=== PATIENT | male | born 1955 | race African-American/Black ===

== ENCOUNTER 2016-04-11 09:18 | Observation (INO) | payer OTHER ==
[2016-04-11 09:26] VITALS: BMI 23.3
--- NOTE | 2016-04-11 09:46 | PDOC ---
History of Present Illness - General Chief Complaint: Chest Pain Stated Complaint: LT ARM NUMBNESS Time Seen by Provider: 04/11/16 09:37 History Source: Patient Exam Limitations: No Limitations - History of Present Illness Initial Comments: 04/11/16 09:46 CHIEF COMPLAINT: Left arm pain HISTORY OF PRESENT ILLNESS: This is a 60-year-old male with a history of NIDDM, HLD, HTN, and chronic back pain who presents to the ED with his family complaining of 3 days of left arm pain. The pain was initially intermittent and associated with chest pain and diaphoresis. It is now constant and associated with weakness and numbness. He reports he is not able to pick things up with his left arm because of weakness. He denies shortness of breath, headache, nausea, fevers/chills, or any other symptoms. Vitel signs on arrival are notable for pulse of 98. PCP is Dr. Jordan Barton. Patient is a nonsmoker. REVIEW OF SYSTEMS: GENERAL/CONSTITUTIONAL: No fever or chills. No weakness. No weight change. HEAD, EYES, EARS, NOSE AND THROAT: No change in vision. No ear pain or discharge. No sore throat. CARDIOVASCULAR: Intermittent chest pain, diaphoresis. No palpitations. RESPIRATORY: No cough, wheezing, or shortness of breath. GASTROINTESTINAL: No nausea, vomiting, diarrhea or constipation. GENITOURINARY: No dysuria, frequency, or change in urination. MUSCULOSKELETAL: No joint or muscle swelling or pain. No neck or back pain. SKIN: No rash or easy bruising. NEUROLOGIC: No headache, vertigo, or loss of consciousness. Left arm numbness/ weakness. PSYCHIATRIC: No depression or anxiety. ENDOCRINE: No increased thirst. No abnormal weight change. HEMATOLOGIC/LYMPHATIC: No anemia, easy bleeding, or history of blood clots. ALLERGIC/IMMUNOLOGIC: No hives or skin allergy. No latex allergy. PHYSICAL EXAM: GENERAL: The patient is awake, alert, and fully oriented, in no acute distress. HEAD: Normal with no signs of trauma. ENT: Pupils equal, round and reactive to light, extraocular movements intact, sclera anicteric, conjunctiva clear. Neck supple. LUNGS: Clear to auscultation bilaterally. Normal excursion. No respiratory distress or use of accessory muscles. CV: RRR, S1/S2, no MRG. Cap refill < 2 sec. ABDOMEN: Soft, non-distended, non-tender. EXTREMITIES: Normal range of motion, no edema. NEUROLOGICAL: Normal speech, normal gait. CN II-XII grossly intact. See NIHSS. PSYCH: Normal mood, normal affect. SKIN: Warm, dry, normal turgor, no rashes or lesions noted. NIH Stroke Scale - Last Known Well Date/Time & Onset Date Last Known Well: 04/08/16 - Initial Evaluation Level of consciousness: Alert Ask patient the month and their age: Answers both correctly Ask patient to open & close eyes; make fist and let go: Obeys both correctly Best gaze (horizontal eye movement): Normal Visual field testing: No visual field loss Facial paresis (Show teeth/raise eyebrows/close eyes tight): Normal symmetrical movement Motor Function: Left Arm: Drift Motor Function: Right Arm: Normal (extends arm 90 (or 45) degrees for 10 seconds without drift Motor Function: Left Leg: Normal (extends leg 30 degrees for 5 seconds without drift) Motor Function: Right Leg: Normal (extends leg 30 degrees for 5 seconds without drift) Limb Ataxia: No ataxia Sensory(Use pinprick test arms,legs,trunk,face/side to side): Mild to moderate decrease in sensation Best language (Describe picture, name items, read sentences): No Aphasia Dysarthria (read several words): Normal articulation Extinction and Inattention: No abnormality - Total Score NIH Stroke Scale Score: 2 Past History - Past Medical History Allergies/Adverse Reactions: Allergies Allergy/AdvReac Type Severity Reaction Status Date / Time No Known Allergies Allergy Verified 04/11/16 09:25 Home Medications: Ambulatory Orders Cyclobenzaprine HCl 5 mg PO TID 04/11/16 Glimepiride [Amaryl -] 4 mg PO DAILY@0700 04/11/16 Metformin HCl [Metformin HCl ER] 500 mg PO DAILY 04/11/16 Naproxen 250 mg PO DAILY 04/11/16 Pravastatin Sodium [Pravachol (Nf)] 40 mg PO HS 04/11/16 Diabetes: Yes HTN: Yes - Psycho/Social/Smoking Cessation Hx Suicidal Ideation: No Smoking History: Never smoked Information on smoking cessation initiated: No *Physical Exam - Vital Signs Last Vital Signs Temp Pulse Resp BP Pulse Ox 98.3 F 98 H 18 154/75 98 04/11/16 09:22 04/11/16 09:22 04/11/16 09:22 04/11/16 09:22 04/11/16 09:22 Heart Score/ECG Review - History History: Moderately suspicious - Electrocardiogram EKG: Normal - Age Age: 45-65 - Risk Factors Risk Factors Heart Score: Yes Hx Hypercholesterolemia, Yes Hx Hypertension, Yes Hx Diabetes Based on the list above the patient has:: >/=3 risk factors or Hx atherosclerotic disease - Troponin Troponin: </= normal limit - Score Heart Score - Total: 4 - ECG Intrepretation Comment:: 04/11/16 10:38 NSR at 86bpm with left axis deviation ED Treatment Course - LABORATORY CBC & Chemistry Diagram: 04/11/16 10:00 04/11/16 10:00 - RADIOLOGY Radiology Studies Ordered: Category Date Time Status HEAD CT WITHOUT CONTRAST [CT] Stat CT Scan 04/11/16 09:46 Ordered CHEST X-RAY PORTABLE* [RAD] Stat Radiology 04/11/16 09:37 Ordered Medical Decision Making - Medical Decision Making 04/11/16 10:21 A/P: 60 year old male with left arm pain, numbness, and weakness. Associated chest pain and diaphoresis are suspicious for ACS. NIHSS=2 and onset is 3 days ago, so patient is not a candidate for TPA. Cervical radiculopathy also considered. 1. EKG 2. Cardiac labs 3. Head CT 4. ASA if HCT negative for hemorrhage 5. Anticipate admission/observation 04/11/16 11:[address]: no acute intracranial process CXR: No acute pathology Troponin <0.02 Patient continues to have left arm pain alternating with numbness. Will request observation for r/o ACS and r/o CVA. *DC/Admit/Observation/Transfer Diagnosis at time of Disposition: Left arm pain, Left arm numbness - Discharge Dispostion Admit: Yes
[2016-04-11 10:15] LABS: BASOPHIL 0.6 % (0-2.0); EOSINOPHIL 1.2 % (0-4.5); MCH 27.7 pg (25.7-33.7); MCHC 32.5 g/dl (32.0-35.9); MEAN CELL VOLUME 85.4 fl (80-96); MEAN PLT VOLUME 9.1 fl (7.5-11.1); NEUTROPHILS 55.1 % (42.8-82.8); PLATELET COUNT 197 K/MM3 (134-434); RDW 13.2 % (11.9-15.9)
[2016-04-11 10:29] LABS: INR 1.12 (0.82-1.09); PROTHROMBIN TIME (PATIENT) 12.4 SEC (9.98-11.88)
[2016-04-11 11:11] LABS: ALBUMIN 3.7 g/dl (3.4-5.0); ANION GAP 9 (8-16); CALCIUM 8.4 mg/dL (8.5-10.1); CO2 24 mmol/L (21-32); SGOT/AST 17 U/L (15-37); SGPT/ALT 18 U/L (12-78)
[2016-04-11 11:14] LABS: ALK PHOS 62 U/L (45-117); BILIRUBIN,TOTAL 0.6 mg/dL (0.2-1.0); GLUCOSE,RANDOM 296 mg/dL (74-106); TOT PROT 6.8 g/dl (6.4-8.2); TROPONIN I < 0.02 ng/ml (0.00-0.05)
[2016-04-11] MEDS ORDERED: ASPIRIN 81 MG CHEWABLE TABLETS PO ONE (11:35)
[2016-04-11] MEDS ORDERED: INSULIN REGULAR HUMAN 100 UNITS/ML *VIAL SQ ONE (11:36)
[2016-04-11] MEDS ORDERED: ASPIRIN 81 MG CHEWABLE TABLETS ONE (11:45)
[2016-04-11] MEDS ORDERED: INSULIN REGULAR HUMAN 100 UNITS/ML *VIAL ONE ×2 (11:46→18:09)
--- NOTE | 2016-04-11 12:46 | HP ---
PCP: Jordan Barton CHIEF COMPLAINT: Left arm pain HISTORY OF PRESENT ILLNESS: This is a 60-year-old man who comes to the ER today complaining of pain in his left arm. The pain is throughout the entire arm. He also has weakness in the left arm and is having difficulty grasping with his left hand. He has been having symptoms for about 3 days. He also reports intermittent left sided chest pain and diaphoresis. He denies shortness of breath, palpitations, dizziness, neck pain, incontinence of urine or stool, difficulty ambulating. PAST MEDICAL HISTORY Hypertension Hyperlipidemia Type 2 diabetes mellitus Chronic back pain PAST SURGICAL HISTORY None Allergies No Known Allergies Allergy (Verified 04/11/16 09:25) HOME MEDICATIONS 3 Medication Instructions Recorded Cyclobenzaprine HCl 5 mg PO TID 04/11/16 Glimepiride [Amaryl -] 4 mg PO DAILY@0700 04/11/16 Metformin HCl [Metformin HCl ER] 500 mg PO DAILY 04/11/16 Naproxen 250 mg PO DAILY 04/11/16 Pravastatin Sodium [Pravachol (Nf)] 40 mg PO HS 04/11/16 Social History: Smoking: Never smoked Alcohol: None Drugs: None Recent Travel: No Family History: Non-contributory REVIEW OF SYSTEMS CONSTITUTIONAL: Absent: fever, chills, diaphoresis, generalized weakness, malaise, loss of appetite, weight change HEENT: Absent: rhinorrhea, nasal congestion, throat pain, throat swelling, difficulty swallowing, mouth swelling, ear pain, eye pain, visual changes CARDIOVASCULAR: Present: chest pain. Absent: syncope, palpitations, lightheadedness, peripheral edema RESPIRATORY: Absent: cough, shortness of breath, dyspnea with exertion, orthopnea, wheezing, stridor, hemoptysis GASTROINTESTINAL: Absent: abdominal pain, abdominal distension, nausea, vomiting , diarrhea, constipation, melena, hematochezia GENITOURINARY: Absent: dysuria, frequency, urgency, hesitancy, hematuria, flank pain MUSCULOSKELETAL: Present: left arm pain, back pain. Absent: arthralgia, joint swelling, neck pain SKIN: Absent: rash, itching, pallor HEMATOLOGIC/IMMUNOLOGIC: Absent: easy bleeding, easy bruising, lymphadenopathy, frequent infections ENDOCRINE: Absent: unexplained weight gain, unexplained weight loss, heat intolerance, cold intolerance NEUROLOGIC: Present: left arm weakness. Absent: headache, paresthesias, dizziness, unsteady gait, seizure, mental status changes, bladder or bowel incontinence PSYCHIATRIC: Absent: anxiety, depression, suicidal or homicidal ideation, hallucinations. PHYSICAL EXAMINATION Vital Signs Period Temp Pulse Resp BP Sys/Yee Pulse Ox Last 24 Hr 98.3 F 98 18 154/75 98 GENERAL: Awake, alert, and fully oriented, in no acute distress. HEAD: Normal with no signs of trauma. EYES: Pupils equal, round and reactive to light, extraocular movements intact, sclerae anicteric, conjunctivae clear. EARS, NOSE, THROAT: Ears normal, nares patent, oropharynx clear without exudates. Moist mucous membranes. NECK: Normal range of motion, supple without lymphadenopathy, JVD, or masses. LUNGS: Breath sounds equal, clear to auscultation bilaterally. No wheezes, and no crackles. No accessory muscle use. HEART: Regular rate and rhythm, normal S1 and S2 without murmur, rub or gallop. ABDOMEN: Soft, nontender, not distended, normoactive bowel sounds, no guarding, no rebound, no masses. No hepatomegaly or splenomegaly. MUSCULOSKELETAL: Normal range of motion at all joints. No bony deformities or tenderness. No CVA tenderness. UPPER EXTREMITIES: 2+ pulses, warm, well-perfused. No cyanosis. No clubbing. Cap refill <2 seconds. No peripheral edema. LOWER EXTREMITIES: 2+ pulses, warm, well-perfused. No calf tenderness. No peripheral edema. NEUROLOGICAL: Cranial nerves II-XII intact. Normal speech. LUE strength 4/5. RUE /LLE/RLE strength 5/5. Sensation intact. PSYCHIATRIC: Cooperative. Good eye contact. Appropriate mood and affect. SKIN: Warm, dry, normal turgor, no rashes or lesions noted. Laboratory Tests 04/11/16 04/11/16 04/11/16 10:00 10:00 10:00 WBC 6.0 RBC 4.77 Hgb 13.2 Hct 40.7 MCV 85.4 MCHC 32.5 RDW 13.2 Plt Count 197 MPV 9.1 Neutrophils % 55.1 Lymphocytes % 34.6 Monocytes % 8.5 Eosinophils % 1.2 Basophils % 0.6 INR 1.12 Sodium 139 Potassium 4.5 Chloride 106 Carbon Dioxide 24 Anion Gap 9 BUN 13 Creatinine 1.0 Creat Clearance w eGFR > 60 Random Glucose 296 H Calcium 8.4 L Total Bilirubin 0.6 AST 17 ALT 18 Alkaline Phosphatase 62 Creatine Kinase 172 Creatine Kinase Index 1.1 CK-MB (CK-2) 1.917 CK-MB (CK-2) Rel Index Troponin I < 0.02 Total Protein 6.8 Albumin 3.7 04/11/16 10:00 WBC RBC Hgb Hct MCV MCHC RDW Plt Count MPV Neutrophils % Lymphocytes % Monocytes % Eosinophils % Basophils % INR Sodium Potassium Chloride Carbon Dioxide Anion Gap BUN Creatinine Creat Clearance w eGFR Random Glucose Calcium Total Bilirubin AST ALT Alkaline Phosphatase Creatine Kinase Creatine Kinase Index CK-MB (CK-2) CK-MB (CK-2) Rel Index Cancelled Troponin I Total Protein Albumin Medication Instructions Recorded Cyclobenzaprine HCl 5 mg PO TID 04/11/16 Glimepiride [Amaryl -] 4 mg PO DAILY@0700 04/11/16 Metformin HCl [Metformin HCl ER] 500 mg PO DAILY 04/11/16 Naproxen 250 mg PO DAILY 04/11/16 Pravastatin Sodium [Pravachol (Nf)] 40 mg PO HS 04/11/16 Chest x-ray: No acute process. Head CT: No hemorrhage, mass, infarct. EKG: Sinus rhythm, rate 86, LAD, no ischemic changes. ASSESSMENT/PLAN: This is a 60-year-old man with a history of HTN, hyperlipidemia, type 2 DM, chronic back pain who presented to the ER with several days of pain and weakness in his left arm, chest pain and diaphoresis. EKG shows no signs of ischemia. Troponin is negative x 1. He is being placed in observation for further evaluation and treatment of an emergent condition. 1. Chest pain with left arm pain - Doubt cardiac, but patient reports diaphoresis with chest pain and has multiple risks for CAD - HEART score is 3 - Possible cervical radiculopathy - Observe on telemetry - Serial troponins - Lipid profile - Start aspirin - Echocardiogram - Physical therapy - Consider imaging of cervical spine 2. Hypertension - On no medication 3. Hyperlipidemia - Continue Pravachol 4. Type 2 diabetes mellitus - Continue Amaryl - Hold Metformin - Fingersticks with Novolog sliding scale 5. Chronic back pain - Continue Flexeril Problem List - Problem (1) Left arm weakness Code(s): M62.81 - MUSCLE WEAKNESS (GENERALIZED) (2) Chest pain Code(s): R07.9 - CHEST PAIN, UNSPECIFIED (3) Chronic back pain Code(s): M54.9 - DORSALGIA, UNSPECIFIED G89.29 - OTHER CHRONIC PAIN (4) Hyperlipidemia Code(s): E78.5 - HYPERLIPIDEMIA, UNSPECIFIED (5) Hypertension Code(s): I10 - ESSENTIAL (PRIMARY) HYPERTENSION (6) Type 2 diabetes mellitus Code(s): E11.9 - TYPE 2 DIABETES MELLITUS WITHOUT COMPLICATIONS Visit type - Emergency Visit Emergency Visit: Yes ED Registration Date: 04/11/16 Care time: The patient presented to the Emergency Department on the above date and was hospitalized for further evaluation of their emergent condition. - New Patient This patient is new to me today: Yes Date on this admission: 04/12/16 - Critical Care Critical Care patient: No
[2016-04-11] MEDS ORDERED: ACETAMINOPHEN 325 MG TABLET (FP) PO PRN (12:47)
[2016-04-11] MEDS ORDERED: ONDANSETRON 4 MG/2 ML VIAL IVPB PRN (12:47)
--- NOTE | 2016-04-11 13:49 | CON.NEURO ---
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 Patient is right-handed. Patient describes left arm pain associated with weakness. Patient is originally from [facility]. No recent travel. No fever. Patient denies neck pain!. CAT scan of the head was done in the emergency room showed no evidence of acute pathology. Patient with no symptoms in the left leg. No numbness or tingling in the feet no urinary incontinence patient on medication now for diabetes. Patient is not taking any medication antiplatelet or aspirin. Patient is on cholesterol medication. - History Source History Provided By: Patient Limitations to Obtaining History: No Limitations - Smoking History Smoking history: Never smoked Home Medications - Allergies Allergies/Adverse Reactions: Allergies Allergy/AdvReac Type Severity Reaction Status Date / Time No Known Allergies Allergy Verified 04/11/16 09:25 - Home Medications Home Medications: Ambulatory Orders Cyclobenzaprine HCl 5 mg PO TID 04/11/16 Glimepiride [Amaryl -] 4 mg PO DAILY@0700 04/11/16 Metformin HCl [Metformin HCl ER] 500 mg PO DAILY 04/11/16 Naproxen 250 mg PO DAILY 04/11/16 Pravastatin Sodium [Pravachol (Nf)] 40 mg PO HS 04/11/16 Family Disease History - Family Disease History Family History: Denies (CVA) Review of Systems - Review of Systems Constitutional: reports: No Symptoms Eyes: reports: No Symptoms Physical Exam-Neuro Vital Signs: Vital Signs Temperature 98.3 F 04/11/16 09:22 Pulse Rate 98 H 04/11/16 09:22 Respiratory Rate 18 04/11/16 09:22 Blood Pressure 154/75 04/11/16 09:22 O2 Sat by Pulse Oximetry (%) 98 04/11/16 09:22 Constitutional: Yes: Well Nourished Neck: Yes: WNL Labs: INR, PTT INR 1.12 (0.82-1.09) 04/11/16 10:00 - Neuro Exam Level Of Consciousness: Yes: Oriented to Person, Oriented to Place, Oriented to Time Eyes: Yes: PERRLA Speech: WNL Dominant Hand: Right Cranial Nerves II-XII Intact: Yes Gag: Present DTR's: 1+ Left Bicep, 1+ Right Bicep, 1+ Left Brachioradialis, 1+ Right Brachioradialis Response to light touch: Normal Response to pain prick: Normal Response to temperature: Normal Response to vibration: Normal, Abnormal (left arm) Coordination: Normal: Finger to Nose (normal) Motor Strength: 3/5: Left Arm, 4/5: Right Arm, Left Leg, Right Leg Gait: Deferred Imaging - Results Cat Scan: Report Reviewed Problem List - Problems (1) Left arm numbness Code(s): R20.0 - ANESTHESIA OF SKIN (2) Left arm pain Code(s): M79.602 - PAIN IN LEFT ARM (3) Left arm weakness Code(s): M62.81 - MUSCLE WEAKNESS (GENERALIZED) Assessment/Plan most probably cervical in nature. There is no drift. There is no evidence of acute STATISTICAL TECHNICIAN pathology on today's exam Rule out cervical radiculopathy 1. Physical therapy assessment. 2. CAT scan of the cervical spine with no contrast. 3. Neurontin 100 mg by mouth daily at bedtime. 4. Nerve conduction testing with tomography of the upper extremities. 5. Tight blood sugar control. Thank you very much for referring this patient for neurological consultation.
[2016-04-11] MEDS: CYCLOBENZAPRINE HCL 10 MG TABLET (FP) PO SCH ×2 (14:42→21:43)
[2016-04-11] MEDS ORDERED: LORAZEPAM CARPU-JECT 2 MG/ML DISP.SYRIN IVPUSH ONE (15:53)
[2016-04-11] MEDS ORDERED: LORAZEPAM CARPU-JECT 2 MG/ML DISP.SYRIN ONE (15:55)
[2016-04-11 17:23] LABS: TROPONIN I < 0.02 ng/ml (0.00-0.05)
[2016-04-11] MEDS: INSULIN SLIDING SCALE (NOVOLOG) 1 VIAL SQ SCH ×2 (18:13→21:43)
[2016-04-11] MEDS: ATORVASTATIN CA 10 MG TABLET (FP) PO SCH (21:40)
--- NOTE | 2016-04-11 23:23 | EKG ---
Test Reason : Blood Pressure : / mmHG Vent. Rate : 086 BPM Atrial Rate : 086 BPM P-R Int : 142 ms QRS Dur : 068 ms QT Int : 336 ms P-R-T Axes : 049 -30 024 degrees QTc Int : 402 ms NORMAL SINUS RHYTHM POSSIBLE LEFT ATRIAL ENLARGEMENT LEFT AXIS DEVIATION ABNORMAL ECG NO PREVIOUS ECGS AVAILABLE Confirmed by ROBERTO GRAHAM, TABBY ([id number]) on 04/11/2016 11:22:37 PM Referred By: Confirmed By:TABBY MEJIA MD
[2016-04-12 00:19] LABS: TROPONIN I < 0.02 ng/ml (0.00-0.05)
[2016-04-12] MEDS: CYCLOBENZAPRINE HCL 10 MG TABLET (FP) PO SCH ×3 (06:00→21:04)
[2016-04-12] MEDS: INSULIN SLIDING SCALE (NOVOLOG) 1 VIAL SQ SCH ×4 (06:38→21:04)
[2016-04-12] MEDS: GLIMEPIRIDE 4 MG TABLET (FP) PO SCH (06:38)
[2016-04-12 07:45] LABS: CHOLESTEROL 148 mg/dL (50-200)
[2016-04-12] MEDS: GABAPENTIN 100 MG CAPSULE (FP) PO SCH (09:03)
[2016-04-12] MEDS: ASPIRIN 81 MG CHEWABLE TABLETS PO SCH (09:03)
[2016-04-12 10:56] LABS: LDL CHOLESTEROL (ONLY SJRH) 96 mg/dL (5-100)
--- NOTE | 2016-04-12 11:38 | PN ---
Progress Note (short form) - Note Progress Note: 60 year old man with arm pain. Seen by Dr Villalba who felt his symptoms could be related to cervical radiculopathy. CT head completed showed no evidence of acute pathology. Dr Villalba had advised patient to undergo MRI C spine- patient was unable to tolerate and does not want any further imaging studies. Patient reports his symptoms are almost back to baseline, denies any motor weakness with slight decrease to light touch left arm. No symptoms in the face or leg. Denies neck pain - History Source History Provided By: Patient Limitations to Obtaining History: No Limitations - Smoking History Smoking history: Never smoked Home Medications - Allergies Allergies/Adverse Reactions: Allergies Allergy/AdvReac Type Severity Reaction Status Date / Time No Known Allergies Allergy Verified 04/11/16 09:25 - Home Medications Home Medications: Ambulatory Orders Cyclobenzaprine HCl 5 mg PO TID 04/11/16 Glimepiride [Amaryl -] 4 mg PO DAILY@0700 04/11/16 Metformin HCl [Metformin HCl ER] 500 mg PO DAILY 04/11/16 Naproxen 250 mg PO DAILY 04/11/16 Pravastatin Sodium [Pravachol (Nf)] 40 mg PO HS 04/11/16 Family Disease History - Family Disease History Family History: Denies (CVA) Review of Systems - Review of Systems Constitutional: reports: No Symptoms Eyes: reports: No Symptoms Physical Exam-Neuro - Neuro Exam Level Of Consciousness: Yes: Oriented to Person, Oriented to Place, Oriented to Time Eyes: Yes: PERRLA Speech: WNL Dominant Hand: Right Cranial Nerves II-XII Intact: Yes Gag: Present DTR's: 1+ Left Bicep, 1+ Right Bicep, 1+ Left Brachioradialis, 1+ Right Brachioradialis Response to light touch: slight decrease to light touch left arm, almost back to baseline Coordination: Normal: Finger to Nose (normal) Motor Strength: 5/5 x4 Gait: Deferred Imaging - Results Cat Scan: Report Reviewed Problem List - Problems (1) Left arm numbness Code(s): R20.0 - ANESTHESIA OF SKIN (2) Left arm pain Code(s): M79.602 - PAIN IN LEFT ARM (3) Left arm weakness Code(s): M62.81 - MUSCLE WEAKNESS (GENERALIZED) Assessment/Plan 60 year old man with arm pain. Seen by Dr Villalba who felt his symptoms could be related to cervical radiculopathy. CT head completed showed no evidence of acute pathology. Dr Villalba had advised patient to undergo MRI C spine- patient was unable to tolerate and does not want any further imaging studies. Patient reports his symptoms are almost back to baseline, denies any motor weakness with slight decrease to light touch left arm. No symptoms in the face or leg. Denies neck pain Exam slight decrease to light touch left arm. Symptoms improving. Patient does not want to undergo any further imaging Possible cervical radiculopathy Recommend Follow up with neuro as outpatient EMG/NCV as outpatient Neurontin 100 mg at bedtime Please call if further questions
--- NOTE | 2016-04-12 12:22 | CONSULT ---
Consult Consult Specialty:: Cardiology - History of Present Illness History of Present Illness: HISTORY OF PRESENT ILLNESS: This is a 60-year-old male with a history of NIDDM, HLD, HTN, and chronic back pain who presents to the ED with his family complaining of 3 days of left arm pain. The pain was initially intermittent and associated with chest pain and diaphoresis. It is now constant and associated with weakness and numbness. He reports he is not able to pick things up with his left arm because of weakness. He denies shortness of breath, headache, nausea, fevers/chills, or any other symptoms. - History Source History Provided By: Patient, Medical Record - Past Medical History Cardio/Vascular: Yes: HTN, Hyperlipdemia Endocrine: Yes: Diabetes Mellitus - Alcohol/Substance Use Hx Alcohol Use: No - Smoking History Smoking history: Never smoked Have you smoked in the past 12 months: No Home Medications - Allergies Allergies/Adverse Reactions: Allergies Allergy/AdvReac Type Severity Reaction Status Date / Time No Known Allergies Allergy Verified 04/11/16 09:25 - Home Medications Home Medications: Ambulatory Orders Cyclobenzaprine HCl 5 mg PO TID 04/11/16 Glimepiride [Amaryl -] 4 mg PO DAILY@0700 04/11/16 Metformin HCl [Metformin HCl ER] 500 mg PO DAILY 04/11/16 Naproxen 250 mg PO DAILY 04/11/16 Pravastatin Sodium [Pravachol (Nf)] 40 mg PO HS 04/11/16 Review of Systems - Review of Systems Constitutional: reports: No Symptoms Eyes: reports: No Symptoms HENT: reports: No Symptoms Neck: reports: No Symptoms Cardiovascular: reports: Chest Pain Gastrointestinal: reports: No Symptoms Genitourinary: reports: No Symptoms Breasts: reports: No Symptoms Reported Musculoskeletal: reports: No Symptoms Integumentary: reports: No Symptoms Neurological: reports: No Symptoms Endocrine: reports: No Symptoms Hematology/Lymphatic: reports: No Symptoms Psychiatric: reports: No Symptoms Physical Exam Vital Signs: Vital Signs Temperature 98.1 F 04/12/16 05:50 Pulse Rate 81 04/12/16 05:50 Respiratory Rate 18 04/12/16 05:50 Blood Pressure 111/59 04/12/16 05:50 O2 Sat by Pulse Oximetry (%) 97 04/12/16 10:00 Constitutional: Yes: Well Nourished, No Distress, Calm Eyes: Yes: WNL, Conjunctiva Clear, EOM Intact HENT: Yes: WNL, Atraumatic, Normocephalic Neck: Yes: WNL, Supple, Trachea Midline Cardiovascular: Yes: WNL, Regular Rate and Rhythm Respiratory: Yes: WNL, Regular, CTA Bilaterally Gastrointestinal: Yes: WNL, Normal Bowel Sounds ...Rectal Exam: Yes: WNL Renal/: Yes: WNL Breast(s): Yes: WNL Musculoskeletal: Yes: WNL Extremities: Yes: WNL Integumentary: Yes: WNL Neurological: Yes: WNL, Alert, Oriented ...Motor Strength: WNL Psychiatric: Yes: WNL Imaging - Results Chest X-ray: Image Reviewed EKG: Image Reviewed (nsr rep abn) Problem List - Problems (1) Chest pain Code(s): R07.9 - CHEST PAIN, UNSPECIFIED (2) Left arm numbness Code(s): R20.0 - ANESTHESIA OF SKIN (3) Left arm pain Code(s): M79.602 - PAIN IN LEFT ARM (4) Left arm weakness Code(s): M62.81 - MUSCLE WEAKNESS (GENERALIZED) (5) Chronic back pain Code(s): M54.9 - DORSALGIA, UNSPECIFIED G89.29 - OTHER CHRONIC PAIN (6) Hyperlipidemia Code(s): E78.5 - HYPERLIPIDEMIA, UNSPECIFIED (7) Hypertension Code(s): I10 - ESSENTIAL (PRIMARY) HYPERTENSION (8) Type 2 diabetes mellitus Code(s): E11.9 - TYPE 2 DIABETES MELLITUS WITHOUT COMPLICATIONS Assessment/Plan dm htn hld chest pain Plan r/o keep below 70 [id number] wd echo mibi stress test
--- NOTE | 2016-04-12 17:28 | PN ---
Physical Exam: SUBJECTIVE: Patient seen and examined at bedside. OBJECTIVE: Vital Signs Period Temp Pulse Resp BP Sys/Yee Pulse Ox Last 24 Hr 97.8 F-98.7 F 70-89 18-20 108-138/59-85 97-98 GENERAL: The patient is awake, alert, and fully oriented, in no acute distress. HEAD: Normal with no signs of trauma. EYES: PERRL, extraocular movements intact, sclera anicteric, conjunctiva clear. No ptosis. LUNGS: Breath sounds equal, clear to auscultation bilaterally, no wheezes, no crackles, no accessory muscle use. HEART: Regular rate and rhythm, S1, S2 without murmur, rub or gallop. ABDOMEN: Soft, nontender, nondistended, normoactive bowel sounds, no guarding, no rebound EXTREMITIES: 2+ pulses, warm, well-perfused, no edema. Full ROM both upper extremities. 5/5 motor; 5/5 sensory NEUROLOGICAL: Cranial nerves II through XII grossly intact. Normal speech. No focal deficits PSYCH: Normal mood, normal affect. Laboratory Results - last 24 hr 04/11/16 04/11/16 04/11/16 16:35 18:05 21:39 ESR POC Glucometer [phone] Hemoglobin A1c % Creatine Kinase CK-MB (CK-2) Rel Index Cancelled Troponin I Triglycerides Cholesterol Total LDL Cholesterol HDL Cholesterol 04/11/16 04/12/16 04/12/16 23:22 05:35 05:35 ESR 2 POC Glucometer Hemoglobin A1c % Creatine Kinase 118 CK-MB (CK-2) Rel Index Troponin I < 0.02 Triglycerides 84 Cholesterol 148 Total LDL Cholesterol 96 HDL Cholesterol 47 04/12/16 04/12/16 04/12/16 05:35 05:59 11:51 ESR POC Glucometer 169 281 Hemoglobin A1c % 6.2 H Creatine Kinase CK-MB (CK-2) Rel Index Troponin I Triglycerides Cholesterol Total LDL Cholesterol HDL Cholesterol Current Medications Generic Name Dose Route Start Last Admin Trade Name Freq PRN Reason Stop Dose Admin Acetaminophen 650 mg 04/11/16 12:47 Tylenol - PO Q4H PRN FEVER OR PAIN Aspirin 81 mg 04/12/16 10:00 04/12/16 09:03 Asa - PO 81 mg DAILY ROX Administration Atorvastatin Calcium 10 mg 04/11/16 22:00 04/11/16 21:40 Lipitor - PO 10 mg HS ROX Administration Cyclobenzaprine HCl 5 mg 04/11/16 14:00 04/12/16 13:32 Flexeril - PO 5 mg TID ROX Administration Gabapentin 100 mg 04/12/16 10:00 04/12/16 09:03 Neurontin - PO 100 mg DAILY R[facility] Administration Glimepiride 4 mg 04/12/16 07:00 04/12/16 06:38 Amaryl - PO 4 mg DAILY@0700 ROX Administration Insulin Aspart 0 vial 04/11/16 16:30 04/12/16 16:35 Novolog Vial Sliding Scale - SQ 2 units ACHS ROX Administration Protocol Ondansetron HCl 4 mg 04/11/16 12:47 Zofran Injection IVPB Q4H PRN NAUSEA Chest x-ray: No acute process. Head CT: No hemorrhage, mass, infarct. EKG: Sinus rhythm, rate 86, LAD, no ischemic changes. ASSESSMENT/PLAN: This is a 60-year-old man with a history of HTN, hyperlipidemia, type 2 DM, chronic back pain who presented to the ER with several days of pain and weakness in his left arm pain, left chest pain. EKG shows no signs of ischemia. Troponin is negative x 1. He is being placed in observation for further evaluation and treatment of an emergent condition. Left chest pain --troponins neg x 3; ECG not suggestive of ischemic event; CXR unremarkable; Echo: impaired LV relaxation; RV normal; mild MR; trace TR --seen and evaluated by cardiology, scheduled for stress test tomorrow --continue ASA, statin Left arm pain --possibly cervical radiculopathy --patient went to MRI yesterday but became claustrophobic, could not tolerate --will follow up as outpatient, needs open MRI Hypertension --BP well-controlled, on no meds Hyperlipidemia --continue statin NIDDM --continue glimepiride --Novolog sliding scale coverage Chronic back pain --continue Flexeril F/E/N Fluids: PO intake adequate Electrolytes: replete as indicated Nutrition: diabetic diet; NPO after midnight for stress tomorrow DVT prophylaxis: oob, ambulation Dispo: continues to require inpatient care. Full Code. Visit type - Emergency Visit Emergency Visit: Yes ED Registration Date: 04/11/16 Care time: The patient presented to the Emergency Department on the above date and was hospitalized for further evaluation of their emergent condition. - New Patient This patient is new to me today: Yes Date on this admission: 04/12/16 - Critical Care Critical Care patient: No
[2016-04-12] MEDS: ATORVASTATIN CA 10 MG TABLET (FP) PO SCH (21:04)
[2016-04-13] MEDS: GLIMEPIRIDE 4 MG TABLET (FP) PO SCH (06:21)
[2016-04-13] MEDS: CYCLOBENZAPRINE HCL 10 MG TABLET (FP) PO SCH ×2 (06:21→15:41)
[2016-04-13] MEDS: INSULIN SLIDING SCALE (NOVOLOG) 1 VIAL SQ SCH ×3 (06:21→17:32)
--- NOTE | 2016-04-13 09:55 | PN ---
Progress Note, Physician History of Present Illness: HISTORY OF PRESENT ILLNESS: This is a 60-year-old male with a history of NIDDM, HLD, HTN, and chronic back pain who presents to the ED with his family complaining of 3 days of left arm pain. The pain was initially intermittent and associated with chest pain and diaphoresis. It is now constant and associated with weakness and numbness. He reports he is not able to pick things up with his left arm because of weakness. He denies shortness of breath, headache, nausea, fevers/chills, or any other symptoms. - Current Medication List Current Medications: Active Medications Acetaminophen (Tylenol -) 650 mg PO Q4H PRN PRN Reason: FEVER OR PAIN Aspirin (Asa -) 81 mg PO DAILY [facility] Last Admin: 04/12/16 09:03 Dose: 81 mg Atorvastatin Calcium (Lipitor -) 10 mg PO HS [facility] Last Admin: 04/12/16 21:04 Dose: 10 mg Cyclobenzaprine HCl (Flexeril -) 5 mg PO TID [facility] Last Admin: 04/13/16 06:21 Dose: Not Given Gabapentin (Neurontin -) 100 mg PO DAILY [facility] Last Admin: 04/12/16 09:03 Dose: 100 mg Glimepiride (Amaryl -) 4 mg PO DAILY@0700 [facility] Last Admin: 04/13/16 06:21 Dose: Not Given Insulin Aspart (Novolog Vial Sliding Scale -) 0 vial SQ ACHS [facility] PRN Reason: Protocol Last Admin: 04/13/16 06:21 Dose: Not Given Ondansetron HCl (Zofran Injection) 4 mg IVPB Q4H PRN PRN Reason: NAUSEA - Objective Vital Signs: Vital Signs Temperature 98 F 04/13/16 09:00 Pulse Rate 80 04/13/16 09:00 Respiratory Rate 18 04/13/16 09:00 Blood Pressure 126/68 04/13/16 09:00 O2 Sat by Pulse Oximetry (%) 98 04/13/16 02:00 Eyes: Yes: WNL, Conjunctiva Clear, EOM Intact HENT: Yes: WNL, Atraumatic, Normocephalic Neck: Yes: WNL, Supple, Trachea Midline Cardiovascular: Yes: WNL, Regular Rate and Rhythm Respiratory: Yes: WNL, Regular, CTA Bilaterally Gastrointestinal: Yes: WNL, Normal Bowel Sounds Genitourinary: Yes: WNL Musculoskeletal: Yes: WNL Extremities: Yes: WNL Edema: No Integumentary: Yes: WNL Neurological: Yes: WNL, Alert, Oriented ...Motor Strength: WNL Psychiatric: Yes: WNL Labs: INR, PTT INR 1.12 (0.82-1.09) 04/11/16 10:00 Problem List - Problems (1) Chest pain Code(s): R07.9 - CHEST PAIN, UNSPECIFIED (2) Left arm numbness Code(s): R20.0 - ANESTHESIA OF SKIN (3) Left arm pain Code(s): M79.602 - PAIN IN LEFT ARM (4) Left arm weakness Code(s): M62.81 - MUSCLE WEAKNESS (GENERALIZED) (5) Chronic back pain Code(s): M54.9 - DORSALGIA, UNSPECIFIED G89.29 - OTHER CHRONIC PAIN (6) Hyperlipidemia Code(s): E78.5 - HYPERLIPIDEMIA, UNSPECIFIED (7) Hypertension Code(s): I10 - ESSENTIAL (PRIMARY) HYPERTENSION (8) Type 2 diabetes mellitus Code(s): E11.9 - TYPE 2 DIABETES MELLITUS WITHOUT COMPLICATIONS Assessment/Plan dm htn hld chest pain Plan r/o keep below 70 asa echo - nl ef diastolic dysfunction MIBI stress test negative for ischemia. Cardiac calero stable will f/u as outpatient
--- NOTE | 2016-04-13 12:30 | PN ---
Physical Exam: SUBJECTIVE: Patient seen and examined OBJECTIVE: Vital Signs Period Temp Pulse Resp BP Sys/Yee Pulse Ox Last 24 Hr 97.7 F-98.1 F 69-85 18-20 108-134/46-68 98-98 GENERAL: The patient is awake, alert, and fully oriented, in no acute distress. HEAD: Normal with no signs of trauma. EYES: PERRL, extraocular movements intact, sclera anicteric, conjunctiva clear. No ptosis. LUNGS: Breath sounds equal, clear to auscultation bilaterally, no wheezes, no crackles, no accessory muscle use. HEART: Regular rate and rhythm, S1, S2 without murmur, rub or gallop. ABDOMEN: Soft, nontender, nondistended, normoactive bowel sounds, no guarding, no rebound EXTREMITIES: 2+ pulses, warm, well-perfused, no edema. Full ROM both upper extremities. 5/5 motor; 5/5 sensory NEUROLOGICAL: Cranial nerves II through XII grossly intact. Normal speech. No focal deficits PSYCH: Normal mood, normal affect. Laboratory Results - last 24 hr 04/12/16 04/12/16 04/13/16 16:34 20:48 06:11 POC Glucometer 193 176 157 Current Medications Generic Name Dose Route Start Last Admin Trade Name Freq PRN Reason Stop Dose Admin Acetaminophen 650 mg 04/11/16 12:47 Tylenol - PO Q4H PRN FEVER OR PAIN Aspirin 81 mg 04/12/16 10:00 04/12/16 09:03 Asa - PO 81 mg DAILY [facility]OX Administration Atorvastatin Calcium 10 mg 04/11/16 22:00 04/12/16 21:04 Lipitor - PO 10 mg HS ROX Administration Cyclobenzaprine HCl 5 mg 04/11/16 14:00 04/13/16 06:21 Flexeril - PO Not Given TID ROX Gabapentin 100 mg 04/12/16 10:00 04/12/16 09:03 Neurontin - PO 100 mg DAILY ROX Administration Glimepiride 4 mg 04/12/16 07:00 04/13/16 06:21 Amaryl - PO Not Given DAILY@0700 [facility] Insulin Aspart 0 vial 04/11/16 16:30 04/13/16 11:59 Novolog Vial Sliding Scale - SQ Not Given ACHS [facility] Protocol Ondansetron HCl 4 mg 04/11/16 12:47 Zofran Injection IVPB Q4H PRN NAUSEA ASSESSMENT/PLAN:
[2016-04-13] MEDS: ASPIRIN 81 MG CHEWABLE TABLETS PO SCH (13:34)
[2016-04-13] MEDS: GABAPENTIN 100 MG CAPSULE (FP) PO SCH (13:34)
[2016-04-13 14:10] VITALS: BP 136/72; PULSE 90; TEMP 97.8
--- NOTE | 2016-04-14 09:44 | CONS ---
PHYSICAL MEDICINE REHABILITATION CONSULTATION DATE OF ADMISSION: 04/11/2016 DATE OF CONSULTATION/ELECTRODIAGNOSTIC STUDIES: 04/13/2016 DATE OF DICTATION: 04/14/2016 HISTORY OF PRESENT ILLNESS: The patient is a 60-year-old man with past medical history of hypertension and diabetes who was admitted on April 11, 2016, with pain throughout his left upper extremity. Patient recalls no inciting incident, but at least 3 days prior to admission, developed increasing pain throughout his left arm centered in his left shoulder and upper chest. He noted numbness, tingling, and weakness in the left arm, but no neck pain, no gait instability, no right upper extremity pain or left lower extremity pain, numbness, tingling, or weakness. No bowel/bladder dysfunction. Patient does have chronic low back discomfort, but no change in his back discomfort. On admission, patient has undergone workup with Cardiology as well as Neurology. He underwent a CT of the head on April 11, which demonstrated no acute intracranial pathology and no chronic changes, normal CT. Chest x-ray on April 11, 2016, was also taken, which showed no acute pathology. Bones and soft tissues were normal, slight scoliosis was noted. Blood work demonstrated a normal CBC, WBC 6.0, hemoglobin 13.2, and platelet count 197. INR normal 1.12 on admission. Chemistry on admission showed slight elevation hemoglobin A1c of 6.2, calcium was low at 8.4, albumin borderline 3.7, but otherwise normal chemistry, sodium 139, potassium 4.5, chloride 106, CO2 of 24, BUN 13, creatinine 1.0. Patient had a myocardial perfusion scan on April 13, which was negative , read as negative stress test, fair exercise tolerance, appropriate blood pressure response was seen. Patient was referred for electrodiagnostic evaluation because of the pain, numbness, and weakness in the left upper extremity and is now seen in rehabilitation evaluation. REVIEW OF PAST MEDICAL AND SURGICAL HISTORY: As above, hypertension, hyperlipidemia, type 2 diabetes, chronic back pain. He has undergone no surgeries. SOCIAL HISTORY: [id number]. 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 REVIEW OF SYSTEMS: No headache. No lightheadedness, dizziness. No blurry vision or double vision. No nausea, vomiting, difficulty swallowing, difficulty chewing. Again, he does get upper chest, but mainly the pain is centered around his left shoulder, and he has difficulty with lifting the left arm due to discomfort, intermittent numbness in the fingers but more up in the forearm, and mild weakness in grasp. No pain in the right shoulder girdle. No gait instability. No bowel/ bladder incontinence. No dysuria, polyuria. No fever, chills. No significant weight change. PHYSICAL EXAMINATION: General: On examination, patient is a well-developed man, seen both sitting and standing as well as ambulating. HEENT: He is normocephalic and atraumatic. His extraocular muscles appear intact There is no obvious facial weakness, nor ulcers. Dry mucous membranes. Neck: Supple with good cervical range of motion. Extremities: He has good range of motion and strength in the right upper extremity and throughout his lower extremities. The left upper extremity has a positive impingement test at the left shoulder and some tenderness around the left shoulder. No tenderness or pain with elbow range of motion, and normal sensation to pinprick throughout the left upper extremity, symmetric reflexes. Good strength-range in the lower extremities with steady balance and gait. RESULTS OF EMG NERVE CONDUCTION STUDIES: Please refer to report for details. OVERALL IMPRESSION: 1. Some decreased recruitment in his left deltoid, which is probably due to pain, but cannot entirely rule out an early C5-C6 radiculopathy. 2. Otherwise, normal study. 3. No electrodiagnostic evidence of axillary neuropathy, polyneuropathy, carpal tunnel syndrome, ulnar neuropathy or other abnormality, and no denervation. 4. Left shoulder pain, rule out bursitis. 5. Qwi-fmzowkv-fqvmrjuof diabetes. 6. Hypertension. 7. Hyperlipidemia. 8. Chronic back pain. PLANS AND SUGGESTIONS: 1. I have given him my card and can follow up as an outpatient. 2. If his blood sugars are well controlled, which they seem to be fairly well controlled, would consider cortisone injection, which would be both diagnostic as well as therapeutic in the left shoulder. 3. May require physical therapy. 4. Consider anti-inflammatory if not a candidate for NSAIDs as his renal function appears normal. 5. Monitor blood pressure taking NSAID. 6. Will follow up as outpatient. Thank you for this referral. ROBERT NG M.D. [id number] MTDChelle
--- NOTE | 2016-04-16 17:04 | DS ---
Physical Exam: SUBJECTIVE: Patient seen and examined OBJECTIVE: Patient seen and examined. PHYSICAL EXAM GENERAL: The patient is awake, alert, and fully oriented, in no acute distress. HEAD: Normal with no signs of trauma. EYES: PERRL, extraocular movements intact, sclera anicteric, conjunctiva clear. No ptosis. LUNGS: Breath sounds equal, clear to auscultation bilaterally, no wheezes, no crackles, no accessory muscle use. HEART: Regular rate and rhythm, S1, S2 without murmur, rub or gallop. ABDOMEN: Soft, nontender, nondistended, normoactive bowel sounds, no guarding, no rebound EXTREMITIES: 2+ pulses, warm, well-perfused, no edema. Full ROM both upper extremities. 5/5 motor; 5/5 sensory NEUROLOGICAL: Cranial nerves II through XII grossly intact. Normal speech. No focal deficits PSYCH: Normal mood, normal affect. LABS CBCD WBC 6.0 K/mm3 (4.0-10.0) 04/11/16 10:00 RBC 4.77 M/mm3 (4.00-5.60) 04/11/16 10:00 Hgb 13.2 GM/dL (11.7-16.9) 04/11/16 10:00 Hct 40.7 % (35.4-49) 04/11/16 10:00 MCV 85.4 fl (80-96) 04/11/16 10:00 MCHC 32.5 g/dl (32.0-35.9) 04/11/16 10:00 RDW 13.2 % (11.9-15.9) 04/11/16 10:00 Plt Count 197 K/MM3 (134-434) 04/11/16 10:00 MPV 9.1 fl (7.5-11.1) 04/11/16 10:00 CMP Sodium 139 mmol/L (136-145) 04/11/16 10:00 Potassium 4.5 mmol/L (3.5-5.1) 04/11/16 10:00 Chloride 106 mmol/L (98-107) 04/11/16 10:00 Carbon Dioxide 24 mmol/L (21-32) 04/11/16 10:00 Anion Gap 9 (8-16) 04/11/16 10:00 BUN 13 mg/dL (7-18) 04/11/16 10:00 Creatinine 1.0 mg/dL (0.7-1.3) 04/11/16 10:00 Creat Clearance w eGFR > 60 (>60) 04/11/16 10:00 Calcium 8.4 mg/dL (8.5-10.1) L 04/11/16 10:00 Total Bilirubin 0.6 mg/dL (0.2-1.0) 04/11/16 10:00 AST 17 U/L (15-37) 04/11/16 10:00 ALT 18 U/L (12-78) 04/11/16 10:00 Alkaline Phosphatase 62 U/L (45-117) 04/11/16 10:00 Total Protein 6.8 g/dl (6.4-8.2) 04/11/16 10:00 Albumin 3.7 g/dl (3.4-5.0) 04/11/16 10:00 HOSPITAL COURSE: Date of Admission:04/11/16 Date of Discharge: 04/13/16 This is a 60-year-old man with a history of HTN, hyperlipidemia, type 2 DM, chronic back pain who presented to the ER with several days of pain and weakness in his left arm pain, left chest pain. Left chest pain --troponins neg x 3; ECG not suggestive of ischemic event; CXR unremarkable; Echo: impaired LV relaxation; RV normal; mild MR; trace TR --seen and evaluated by cardiology, scheduled for stress test tomorrow --continue ASA, statin Left arm pain and weakness --no focal deficits on exam --CT head negative --patient went to MRI but became claustrophobic, could not tolerate --EMG study negative --likely musculoskeletal, possible bursitis; recommended several days of NSAIDs as outpatient Hypertension --BP well-controlled, on no meds Hyperlipidemia --continued statin NIDDM --continued glimepiride --Novolog sliding scale coverage Chronic back pain --continued Flexeril Minutes to complete discharge: 35 Discharge Summary Reason For Visit: LT ARM PAIN AND NUMBNESS Condition: Improved - Instructions Diet, Activity, Other Instructions: Return to the emergency department for any new or worsening symptoms. Referrals: Jordan Barton [Non Staff, Medical] - Disposition: HOME - Home Medications Comprehensive Discharge Medication List: Ambulatory Orders Cyclobenzaprine HCl 5 mg PO TID 04/11/16 Glimepiride [Amaryl -] 4 mg PO DAILY@0700 04/11/16 Metformin HCl [Metformin HCl ER] 500 mg PO DAILY 04/11/16 Pravastatin Sodium [Pravachol -] 40 mg PO HS 04/11/16 This patient is new to me today: No Emergency Visit: Yes ED Registration Date: 04/11/16 Care time: The patient presented to the Emergency Department on the above date and was hospitalized for further evaluation of their emergent condition. Critical Care patient: No - Discharge Referral Referred to [facility] No
== END 2016-04-13 17:51 | disposition home or self-care (01) ==
LOC: JER 09:18 → JERBED 12:25 → J4W 20:46
PROVIDERS: ADMIT Internal Medicine; ATTEND Nurse Practitioner Acute Care
DX: R07.89 Other chest pain (principal); E11.9 Type 2 diabetes mellitus without complications; E78.5 Hyperlipidemia, unspecified; I10 Essential (primary) hypertension; M54.89 Other dorsalgia; M79.602 Pain in left arm
CPT/HCPCS: 36415; 70450-TC; 71010-TC; 78452-TC; 80053; 80061; 82550; 82553; 83036; 83721; 84484; 85025; 85610; 85651; 93005; 93010; 93017; 93306-TC; 95860-TC; 97116-GP; 97161-GP; 99285-25; A9502; G0378